=== PATIENT | male | born 1985 | race Caucasian/White ===

== ENCOUNTER 2018-05-28 06:21 | Emergency (ER) | payer SELFPAY ==
--- NOTE | 2018-05-28 07:02 | ED Physician Chart ---
ED Chief Complaint/HPI - Patient Information Date Seen:: 05/28/18 Time Seen:: 06:45 Chief Complaint:: low back pain History of Present Illness:: Patient developed low back pain yesterday when he got up from the supine position. Pain does not radiate distally. No bladder or bowel problems. Any prior episode of low back pain has been less severe and lasted a couple of days. Allergies:: Allergies Allergy/AdvReac Type Severity Reaction Status Date / Time No Known Allergies Allergy Verified 05/28/18 06:37 Vitals:: Vital Signs - 8 hr 05/28/18 06:37 Temp 98.4 F HR 60 RR 12 BP 140/80 O2 Sat % 100 Historian:: Patient Review:: Nurse's Note Reviewed <Sundar Membreno - Last Filed: 05/28/18 06:56> - Patient Information Allergies:: Allergies Allergy/AdvReac Type Severity Reaction Status Date / Time No Known Allergies Allergy Verified 05/28/18 06:37 Vitals:: Vital Signs - 8 hr 05/28/18 05/28/18 05/28/18 06:37 07:09 08:26 Temp 98.4 F 98.4 F 98.2 F HR 60 60 61 RR 12 12 18 BP 140/80 140/80 147/76 O2 Sat % 100 99 99 <Carlie Almanzar - Last Filed: 05/28/18 12:54> ED Review of Systems - Review of Systems General/Constitutional: No fever, No chills, No weight loss, No weakness, No diaphoresis, No edema, No loss of appetite Skin: No skin lesions, No rash, No bruising Head: No headache, No light-headedness Eyes: No loss of vision, No pain, No diplopia ENT: No earache, No nasal drainage, No sore throat, No tinnitus Neck: No neck pain, No swelling, No thyromegaly, No stiffness, No mass noted Cardio Vascular: No chest pain, No palpitations, No PND, No orthopnea, No edema Pulmonary: No SOB, No cough, No sputum, No wheezing GI: No nausea, No vomiting, No diarrhea, No pain, No melena, No hematochezia, No constipation, No hematemesis G/U: No dysuria, No frequency, No hematuria Musculoskeletal: Back pain, Muscle pain Endocrine: No polyuria, No polydipsia Psychiatric: No prior psych history, No depression, No anxiety, No suicidal ideation Hematopoietic: No bruising, No lymphadenopathy Allergic/Immuno: No urticaria, No angioedema Neurological: No syncope, No focal symptoms, No weakness, No paresthesia, No headache, No seizure, No dizziness, No confusion, No vertigo <Sundar Membreno - Last Filed: 05/28/18 06:56> ED Past Medical History - Past Medical History Past Medical History: Asthma/COPD Family History: Other (patient is adopted) Social History: Non Smoker, Alcohol, Other (occasional alcohol consumption) Surgical History: other (right hand for fracture and nasal bones for fracture) Psychiatricy History: None Medication: None <Sundar Membreno - Last Filed: 05/28/18 06:56> Family Medical History - Family Member Mother History Unknown: Yes <Sundar Membreno - Last Filed: 05/28/18 06:56> ED Physical Exam - Physical Examination General/Constitutional: Awake, Well-developed, well-nourished, Alert, No distress, GCS 15, Non-toxic appearing, Ambulatory Head: Atraumatic Eyes: Lids, conjuctiva normal, PERRL, EOMI Skin: Nl inspection, No rash, No skin lesions, No ecchymosis, Well hydrated, No lymphadenopathy ENMT: External ears, nose nl, Nasal exam nl, Lips, teeth, gums nl Neck: Nontender, Full ROM w/o pain, No JVD, No nuchal rigidity, No bruit, No mass, No stridor Respiratory: Nl effort/Exclusion, Clear to Auscultation, No Wheeze/Rhonchi/Rales Cardio Vascular: RRR, No murmur, gallop, rubs, NL S1 S2 GI: No tenderness/rebounding/guarding, No organomegaly, No hernia, Normal BS's, Nondistended, No mass/bruits, No McBurney tenderness : No CVA tenderness Extremities: No tenderness or effusion, Full ROM, normal strength in all extremities, No edema, Normal digits & nails Neuro/Psych: Alert/oriented Other Neuro/Psych comments:: Straight leg raising at 45 bilaterally; strength large toes and sensation of both feet intact; deep tendon reflexes knees and ankles 2 out of 4 Misc: Normal back, No paraspinal tenderness <Sundar Membreno - Last Filed: 05/28/18 06:56> ED Assessment - Assessment General Assessment: Explained to patient that x-rays are generally not indicated since the back pain is musculoskeletal and started spontaneously without trauma. Patient is endorsed to Dr. Almanzar at 0700. A prescription for ibuprofen 400 mg #30 to take 1 3 times a day will be given <Sundar Membreno - Last Filed: 05/28/18 06:56> - Assessment Assessment/Comments:: feels better after injection. <Carlie Almanzar - Last Filed: 05/28/18 12:54> ED Septic Shock - <6hrs of presentation: Vital Signs: Vital Signs - 8 hr 05/28/18 06:37 Temp 98.4 F HR 60 RR 12 BP 140/80 O2 Sat % 100 <Sundar Membreno - Last Filed: 05/28/18 06:56> - . Is Septic Shock (SBP<90, OR Lactate>4 mmol\L) present?: No - <6hrs of presentation: Vital Signs: Vital Signs - 8 hr 05/28/18 05/28/18 05/28/18 06:37 07:09 08:26 Temp 98.4 F 98.4 F 98.2 F HR 60 60 61 RR 12 12 18 BP 140/80 140/80 147/76 O2 Sat % 100 99 99 <Carlie Almanzar - Last Filed: 05/28/18 12:54> ED Reassessment (Disposition) - Diagnosis Diagnosis:: Low back pain - Aftercare/Follow up Instructions Aftercare/Follow-Up Instructions:: Refer to Discharge Instructions - Patient Disposition Discharge/Transfer:: Home Condition at Disposition:: Stable <Sundar Membreno - Last Filed: 05/28/18 06:56> - Diagnosis Diagnosis:: Yeast infection of right groin. - Aftercare/Follow up Instructions Medication Prescribed:: Ibuprofen 400 mg po tid Flexeril 5 mg po tid # 24 Nystatin cream apply bid <Carlie Almanzar - Last Filed: 05/28/18 12:54>
[2018-05-28] MEDS ORDERED: Morphine Sulfate 4 mg/mL 1mL Syr IM STA (08:36)
[2018-05-28] MEDS ORDERED: Morphine Sulfate 4 mg/mL 1mL Syr ONE (08:38)
== END 2018-05-28 09:00 | disposition home or self-care (01) ==
LOC: ER 06:21
DX: M54.5 Low back pain (principal); L08.9 Local infection of the skin and subcutaneous tissue, unspecified; J44.9 Chronic obstructive pulmonary disease, unspecified
CPT/HCPCS: 99284; 96372 ×4; J1885 ×2; J2930; Z7502